=== PATIENT | female | born 1975 | race Caucasian/White ===

== ENCOUNTER 2017-03-19 21:16 | Inpatient (IN) | payer OTHER ==
[~2017-03-19] VITALS: Ht 165.1 cm; Wt 75.3 kg
[2017-03-19 22:19] LABS: BASOPHIL % 0.4 % (0-2); PLATELET COUNT 348 x10^3mcL (130-400); RED CELL DISTRIBUTION WIDTH 12.7 % (11.5-14.5)
[2017-03-19 22:28] LABS: CALCIUM 8.8 mg/dL (8.5-10.1); CARBON DIOXIDE 25.7 mmol/L (21-32); CHLORIDE SERUM 104 mmol/L (98-107); CREATININE SERUM 0.7 mg/dL (0.6-1.0); GFR1 > 60 mL/min; GLUCOSE SERUM 90 mg/dL (74-106); POTASSIUM SERUM 3.8 mmol/L (3.5-5.1); SODIUM SERUM 140 mmol/L (136-145)
[2017-03-19 22:30] LABS: AMPHETAMINE QUAL UR POSITIVE (NEG <=1000)
[2017-03-19 22:36] LABS: ALKALINE PHOSPHATASE 85 U/L (46-116); ALT/SGPT 26 U/L (14-59); AST/SGOT 23 U/L (15-37); BILIRUBIN TOTAL 0.3 mg/dL (0.20-1.00); TOTAL PROTEIN, SERUM 8.1 g/dL (6.4-8.2)
[2017-03-20] MEDS ORDERED: ATIVAN0.5 M1 (00:20)
[2017-03-20] MEDS ORDERED: LATUDA40 M1 (00:20)
[2017-03-20] MEDS ORDERED: ZOLOFT20 MG/ML (00:21)
[2017-03-20 01:33] VITALS: BP 123/89
[2017-03-20 01:36] LABS: PHOSPHOROUS 3.7 mg/dL (2.5-4.9)
[2017-03-20 04:00] VITALS: BP 115/72
[2017-03-20 07:15] VITALS: BP 94/47
[2017-03-20 11:51] VITALS: BP 116/63
[2017-03-20 12:23] LABS: microscopic required? NO
[2017-03-20 12:34] LABS: UA SPECIFIC GRAVITY 1.025 (1.005-1.035); urine erythrocyte NEGATIVE (NEGATIVE)
[2017-03-20 15:54] VITALS: BP 113/65
[2017-03-20 20:00] VITALS: BP 113/63
[2017-03-21] VITALS: BP 108/61
[2017-03-21 05:52] LABS: BASOPHIL % 0.6 % (0-2); PLATELET COUNT 260 x10^3mcL (130-400); RED CELL DISTRIBUTION WIDTH 13.2 % (11.5-14.5)
[2017-03-21 06:07] LABS: CALCIUM 8.4 mg/dL (8.5-10.1); CARBON DIOXIDE 27.2 mmol/L (21-32); CHLORIDE SERUM 105 mmol/L (98-107); CREATININE SERUM 0.7 mg/dL (0.6-1.0); GFR1 > 60 mL/min; GLUCOSE SERUM 93 mg/dL (74-106); PHOSPHOROUS 3.5 mg/dL (2.5-4.9); POTASSIUM SERUM 4.1 mmol/L (3.5-5.1); SODIUM SERUM 140 mmol/L (136-145)
[2017-03-21 07:43] VITALS: BP 105/55
[2017-03-21 11:51] VITALS: BP 110/66
[2017-03-21 16:41] VITALS: BP 110/60
[2017-03-21 18:10] VITALS: BP 96/57
[2017-03-21 21:00] VITALS: BP 111/62
[2017-03-22 06:38] LABS: PLATELET COUNT 252 x10^3mcL (130-400); RED CELL DISTRIBUTION WIDTH 13.1 % (11.5-14.5)
[2017-03-22 06:53] LABS: CALCIUM 8.7 mg/dL (8.5-10.1); CARBON DIOXIDE 27.9 mmol/L (21-32); CHLORIDE SERUM 105 mmol/L (98-107); CREATININE SERUM 0.6 mg/dL (0.6-1.0); GFR1 > 60 mL/min; GLUCOSE SERUM 91 mg/dL (74-106); MAGNESIUM 1.9 mg/dL (1.8-2.4); PHOSPHOROUS 3.9 mg/dL (2.5-4.9); SODIUM SERUM 138 mmol/L (136-145)
[2017-03-22 09:19] VITALS: BP 117/68
[2017-03-22 12:57] VITALS: BP 107/55
[2017-03-22 14:00] VITALS: BP 114/70
[2017-03-22 22:03] VITALS: BP 120/69
[2017-03-23 07:06] LABS: PLATELET COUNT 277 x10^3mcL (130-400); RED CELL DISTRIBUTION WIDTH 12.6 % (11.5-14.5)
[2017-03-23 07:40] VITALS: BP 110/66
[2017-03-23 20:48] VITALS: BP 104/65
[2017-03-24 06:09] VITALS: BP 102/62
[2017-03-24 10:00] VITALS: BP 105/67
[2017-03-24 18:05] VITALS: BP 101/63
[2017-03-24 20:14] VITALS: BP 98/58
[2017-03-25 05:20] VITALS: BP 101/68
[2017-03-25 09:09] VITALS: BP 111/72
[2017-03-25 12:21] VITALS: BP 104/58
[2017-03-25 19:14] VITALS: BP 107/54
[2017-03-26 05:29] VITALS: BP 98/52
[2017-03-26 08:39] VITALS: BP 111/59
[2017-03-26 16:06] VITALS: BP 111/59
[2017-03-26] MEDS ORDERED: SERTRALINE50 M1 PO (16:56)
[2017-03-26] MEDS ORDERED: SEROQUEL200 MG PO (16:59)
[2017-03-26] MEDS ORDERED: ATI1 PO (17:02)
== END 2017-03-26 18:08 | disposition home or self-care (01) | DRG 753 ==
LOC: ED 21:16 → IC 03-20 00:23 → DU 03-20 00:23 → IC 03-20 01:17 → DU 03-21 18:07 → MU 03-24 06:18
PROVIDERS: Emergency Medicine; Family Medicine; ADMIT Family Medicine Sports Medicine
DX: F31.5 Bipolar disorder, current episode depressed, severe, with psychotic features (principal); G92 Toxic encephalopathy; R45.851 Suicidal ideations; F12.10 Cannabis abuse, uncomplicated; F15.10 Other stimulant abuse, uncomplicated; T51.0X2A Toxic effect of ethanol, intentional self-harm, initial encounter; E83.51 Hypocalcemia; D64.9 Anemia, unspecified; I10 Essential (primary) hypertension; M79.7 Fibromyalgia; F17.210 Nicotine dependence, cigarettes, uncomplicated; Z68.26 Body mass index [BMI] 26.0-26.9, adult; Z22.322 Carrier or suspected carrier of Methicillin resistant Staphylococcus aureus; Z59.0 Homelessness; Y92.89 Other specified places as the place of occurrence of the external cause
CPT/HCPCS: G0480; J7030